=== PATIENT | male | born 1975 | race Caucasian/White ===

== ENCOUNTER 2018-04-14 05:20 | Day surgery (SDC) | payer OTHER ==
[~2018-04-14] VITALS: Ht 172.7 cm; Wt 95.3 kg
[~2018-04-14 05:20] MED LIST: COQ-10100 MG PO; FISH OIL GUMMI1 EAC1 PO; LOSARTAN POTASS50 MG PO; NORVASC10 MG PO; POTASSIUM CIT-473 ML PO; TRIAMTERENE-HC1 EAC3 PO; ZYLOPRIM300 MG PO
[2018-04-14 06:21] VITALS: BP 137/91
[2018-04-14 07:02] LABS: CALCIUM 9.4 mg/dL (8.5-10.1)
[2018-04-14 07:04] LABS: POTASSIUM 2.9 mmol/L (3.5-5.1)
[2018-04-14 07:08] LABS: TOTAL BILIRUBIN 0.5 mg/dL (<0.1-1.0); TOTAL PROTEIN 7.5 g/dL (6.4-8.2)
--- NOTE | 2018-04-14 09:39 | EKG ---
[address] [address] ELECTROCARDIOGRAM REPORT Name: CAROLYNN SAVAGE Room #: 150-1 [facility]#: [id number] Admission: 04/14/18 Attend Phys: Anirudh Negron MD Discharge: Date of : 79 Report #: [id number] THIS REPORT FOR: //name// [facility] Test Date: 2018-04-14 Test Time: 06:24:11 Pat Name: CAROLYNN SAVAGE Department: Room: 150 Gender: M Waste Water Operator: DANIELA : 1975 Requested By: Anirudh Negron Order Number: [id number] MD: Wiliam Shah Measurements Intervals [place] Rate: 88 P: 60 [place]: 178 QRS: -26 QRSD: 112 T: 65 QT: 376 QTc: 455 Interpretive Statements Sinus rhythm Borderline intraventricular conduction delay Baseline wander in lead(s) V6 No previous ECG available for comparison Electronically Signed On 04-14-2018 9:38:56 POWER SUPERINTENDENT by Wiliam Shah [email or web address] <ELECTRONICALLY SIGNED> By: Wiliam Shah MD, [facility] 04/14/18 0938 D: [id number] 3 Wiliam Shah MD, FACC /EPI
[2018-04-14 10:23] VITALS: BP 137/91
--- NOTE | 2018-04-14 11:58 | O ---
[address] [address] OPERATIVE REPORT Name: CAROLYNN SAVAGE Room #: 150-1 [facility]#: [id number] Admission: 04/14/18 Attend Phys: Anirudh Negron MD Discharge: Date of : 79 Report #: [id number] THIS REPORT FOR: //name// CC: Anirudh ReynoldsTaran DATE OF SERVICE: 04/14/2018 SERVICE: Orthopedics. FACILITY: [facility] SURGEON: Anirudh Negron MD ARCHITECTURAL DRAFTSMAN: Anum Boss NP. INDICATIONS FOR ARCHITECTURAL DRAFTSMAN: Extremity positioning, suture management and assistance with repair. PREOPERATIVE DIAGNOSES: 1. Left shoulder pain. 2. Left shoulder labral tear. 3. Left shoulder instability. POSTOPERATIVE DIAGNOSES: 1. Left shoulder pain. 2. Left shoulder labral tear. 3. Left shoulder instability. 4. Left shoulder partial-thickness rotator cuff tear. PROCEDURES: 1. Left shoulder arthroscopic labral repair, anterior-inferior and posterior, the posterior superior labral tear. 2. Extensive arthroscopic debridement, left shoulder. ANESTHESIA: General w/ LMA. COMPLICATIONS: None. DRAINS: None. SPECIMENS: None. FINDINGS: 1. Five [employer] Q-Fix suture anchors for repair. 2. Low-grade partial-thickness leading edge of supraspinatus tear, treated with [address] [address] OPERATIVE REPORT Name: CAROLYNN SAVAGE Room #: 150-1 [facility]#: [id number] Admission: 04/14/18 Attend Phys: Anirudh Negron MD Discharge: Date of : 79 Report #: [id number] debridement. 3. Normal biceps and biceps insertion. 4. Moderate subacromial bursitis, treated with bursectomy. 5. Post-op protocol: 6 weeks in sling due to front/back stabilization HISTORY: The patient is a 43-year-old gentleman with history of persistent left shoulder pain that failed conservative measures. He had an MRI, which showed a labral tear. He had instability symptoms and was ultimately indicated for surgical treatment. Risks, benefits, alternatives and indications of surgery were discussed with him in detail. Risks include but not limited to pain, bleeding, infection, injury to nerve or blood vessels, persistent pain despite surgical intervention, failure of any repairs, reconstructions, progression of any preexisting chondral injury, stiffness, need for further surgery as well as complications related to anesthesia such as stroke, heart attack, pulmonary complications, thromboembolic disease and . Despite these risks, he wished to proceed. PROCEDURE IN DETAIL: After left lower extremity was correctly identified in the preoperative holding as the operative extremity, the patient was taken to the operating room where general anesthesia was induced without complication. He was turned into lateral decubitus position with left side up, right side down, padded appropriately. Prophylactic antibiotics were administered at appropriate time. Left upper extremity was then prepped and draped in sterile fashion. Time-out procedure was performed. Posterior viewing portal was established, followed by a low anterior working portal and a high anterior interval portal as well. There was a labral tear, full-thickness anterior inferiorly and inferiorly and then there was a partial-thickness posterior labral tear. He had an examination under anesthesia which showed gross posterior instability at the primary direction. The labral tear was then developed to mobilize the soft tissues and then the shaver was used to prepare a fresh surface for healing. The first anchor was placed at the 5 o'clock position, the second anchor was placed at the 7 o'clock position and then mattress sutures were passed with both of these and then they were tied which provided good closure of the inferior capsular volume, which reduced the shoulder, held it well, stabilized, and then the remaining suture anchors were placed, reinforcement to support the repair Third and fourth anchors were placed posteriorly and then the fifth anchor placed anteriorly with mattress sutures providing good labral repair and capsular mobilization. The shaver then used to debride the undersurface of the leading edge of the supraspinatus and the medial aspect of the sling of the biceps. The biceps itself was normal and the remaining portion of the rotator cuff was normal. A labral tape was then used to close the posterior capsulotomy that had been cannulated with a posterior instability portal. At this point, scope was placed in subacromial space and a bursectomy was [address] [address] OPERATIVE REPORT Name: CAROLYNN SAVAGE Room #: 150-1 [facility] M..#: [id number] Admission: 04/14/18 Attend Phys: Anirudh Negron MD Discharge: Date of : 79 Report #: [id number] performed. The rotator cuff was normal on this side. Instruments removed. Portal sites were closed. Sterile dressing was applied. The patient was awakened from anesthesia and taken to recovery room in stable condition. There were no complications and all counts were correct. <ELECTRONICALLY SIGNED> By: Anirudh Negron MD 04/14/18 1158 1004 1048 Anirudh Negron MD /nt
== END 2018-04-14 12:44 | disposition home or self-care (01) ==
LOC: TBA 05:20 → OR 05:20 → TBA 05:21 → OR 10:35
PROVIDERS: Orthopaedic Surgery Sports Medicine
DX: S43.402A Unspecified sprain of left shoulder joint, initial encounter (principal); M25.312 Other instability, left shoulder; M75.52 Bursitis of left shoulder; I10 Essential (primary) hypertension; Z88.2 Allergy status to sulfonamides; Z88.8 Allergy status to other drugs, medicaments and biological substances; Z98.890 Other specified postprocedural states; Z79.899 Other long term (current) drug therapy; X58.XXXA Exposure to other specified factors, initial encounter; Y93.89 Activity, other specified; Y92.89 Other specified places as the place of occurrence of the external cause; Y99.8 Other external cause status
CPT/HCPCS: 50010; 50101; 50172; 50386; 50417; 50935; 51038; 51320; 51445; 52001; 52282; 53610; 54170; 55430; 56527; 56617; 57103; 57128